=== PATIENT | male | born 1950 | race American Indian/Alaskan Native ===

== ENCOUNTER 2019-03-13 14:24 | Emergency (ER) | payer OTHER ==
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
[2019-03-13 16:35] VITALS: BP 144/60
== END 2019-03-13 18:22 | disposition left against medical advice (07) ==
LOC: ED 14:24
DX: M54.2 Cervicalgia (principal)
CPT/HCPCS: 99282